=== PATIENT | female | born 1970 | race African-American/Black ===

== ENCOUNTER 2016-08-16 16:39 | Emergency (ER) | payer OTHER ==
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
[2016-08-16 20:15] VITALS: BP 141/96
== END 2016-08-16 20:12 | disposition home or self-care (01) ==
LOC: ER 16:39
DX: T14.8 Other injury of unspecified body region (principal); V49.40XA Driver injured in collision with unspecified motor vehicles in traffic accident, initial encounter; K04.7 Periapical abscess without sinus; F17.200 Nicotine dependence, unspecified, uncomplicated; R51 Headache
CPT/HCPCS: 99283

== ENCOUNTER 2016-10-08 12:07 | Emergency (ER) | payer BC, OTHER ==
--- NOTE | 2016-10-08 13:50 | ER Document Report ---
ED Medical Screen (RME) - General Chief Complaint: Numbness Stated Complaint: NUMBNESS LEFT SIDE Time Seen by Provider: 10/08/16 13:50 Mode of Arrival: Ambulatory Information source: Patient Notes: This is a 46-year-old female with no prior medical problems who presents to the emergency room for several weeks worth of right upper extremity numbness. She presents with concerns for stroke. TRAVEL OUTSIDE OF THE [place] IN LAST 30 DAYS: No - HPI Onset: Other - Several weeks Onset/Duration: Gradual Quality of pain: No pain Severity: None Pain Level: Denies Associated Symptoms: denies: Chest pain, Shortness of breath Exacerbated by: Denies Relieved by: Denies Similar symptoms previously: No Recently seen / treated by doctor: No - Related Data Allergies/Adverse Reactions: No Known Allergies Allergy (Unverified 08/16/16 17:52) Past Medical History - General Information source: Patient - Social History Cigarette use (# per day): No Chew tobacco use (# tins/day): No Frequency of alcohol use: None Drug Abuse: None Lives with: Family Family history: Reviewed & Not Pertinent - Medical History Medical History: Negative Renal/ Medical History: Denies: Hx Peritoneal Dialysis - Immunizations Hx Diphtheria, Pertussis, Tetanus Vaccination: Yes Review of Systems - Review of Systems Constitutional: No symptoms reported EENT: No symptoms reported Cardiovascular: No symptoms reported Respiratory: No symptoms reported Gastrointestinal: No symptoms reported Genitourinary: No symptoms reported Female Genitourinary: No symptoms reported Musculoskeletal: No symptoms reported Skin: No symptoms reported Hematologic/Lymphatic: No symptoms reported Neurological/Psychological: No symptoms reported Physical Exam - Vital signs Vitals: Temp Pulse Resp BP Pulse Ox 98.3 F 69 18 142/90 H 100 10/08/16 12:23 10/08/16 12:23 10/08/16 12:23 10/08/16 12:23 10/08/16 12:23 Notes: Physical exam: GENERAL: 46-year-old female, alert and oriented 3, no acute distress HEAD: Atraumatic, normocephalic. EYES: Pupils equal round and reactive to light, extraocular movements intact, sclera anicteric, conjunctiva are normal. ENT: TMs normal, nares patent, oropharynx clear without exudates. Moist mucous membranes. NECK: Normal range of motion, supple without lymphadenopathy or JVD. LUNGS: Breath sounds clear to auscultation bilaterally and equal. No wheezes rales or rhonchi. HEART: Regular rate and rhythm without murmurs, rubs or gallops. ABDOMEN: Soft, normoactive bowel sounds. No tenderness to palpation. No guarding, no rebound. No masses appreciated. EXTREMITIES: Normal range of motion, no pitting or edema. No clubbing or cyanosis. NEUROLOGICAL: Cranial nerves II through XII grossly intact. 5/5, sensory grossly intact, cerebellar good ,normal speech, normal gait. NIH = 0 PSYCH: Normal mood, normal affect. SKIN: Warm, Dry, normal turgor, no rashes or lesions noted. Course - Vital Signs Vital signs: Temp Pulse Resp BP Pulse Ox 98.7 F 56 L 18 133/86 H 100 10/08/16 16:10 10/08/16 16:10 10/08/16 12:23 10/08/16 16:10 10/08/16 16:10 - Laboratory Result Diagrams: 10/08/16 14:00 10/08/16 14:00 Laboratory results interpreted by me: 10/08/16 10/08/16 14:00 14:00 Hgb 11.9 L Hct 35.4 L RDW 14.3 H AST 52 H Creatine Kinase 508 H Total Protein 9.7 H - Diagnostic Test Radiology reviewed: Image reviewed, Reports reviewed - By the brain shows no acute evidence of stroke Doctor's Discharge - Discharge Clinical Impression: numbness Radiculopathy Qualifiers: Spinal region: cervical Qualified Code(s): M54.12 - Radiculopathy, cervical region Condition: Stable Disposition: HOME, SELF-CARE Instructions: Radiculopathy ([facility]) Additional Instructions: As Discussed, MRI does not show any evidence of strokes. As far as your labs: Your kidneys, electrolytes, anemia studies were normal. Your blood pressure was borderline high. I would like you to follow-up with primary care doctor: I left the number for Dr. Ochoa on the chart. No restrictions on activity Return to the emergency room for any weakness or worsening numbness or any concerns you are getting worse Forms: Return to Work Referrals: DARWIN OCHOA MD [ACTIVE STAFF] - Follow up as needed (Number of a good primary care doctor who is affiliated with the hospital.)
[2016-10-08 14:32] LABS: ABSOLUTE BASOPHILS # (AUTO) 0.1 10^3/uL (0.0-0.2); ABSOLUTE EOSINOPHILS # (AUTO) 0.1 10^3/uL (0.0-0.6); ABSOLUTE LYMPHOCYTES (AUTO) 1.8 10^3/uL (0.5-4.7); ABSOLUTE MONOCYTES (AUTO) 0.2 10^3/uL (0.1-1.4); ABSOLUTE NEUT (AUTO) 3.9 10^3/uL (1.7-8.2); BASOPHILS % (AUTO) 1.2 % (0-2); HEMATOCRIT 35.4 % (36.0-47.0); HEMOGLOBIN 11.9 g/dL (12.0-15.5); HGB HCT DIFFERENCE 0.3; LYMPHOCYTES % (AUTO) 29.5 % (13-45); MEAN CORPUSCULAR HEMOGLOBIN 29.3 pg (27.0-33.4); MEAN CORPUSCULAR HGB CONC 33.8 g/dL (32.0-36.0); MEAN CORPUSCULAR VOLUME 87 fl (80-97); MONOCYTES % (AUTO) 3.7 % (3-13); RED BLOOD COUNT 4.07 10^6/uL (3.72-5.28); RED CELL DISTRIBUTION WIDTH 14.3 % (11.5-14.0); SEGMENTED NEUTROPHILS % (AUTO) 64.6 % (42-78)
[2016-10-08 14:46] LABS: ALANINE AMINOTRANSFERASE 50 U/L (9-52); ALKALINE PHOSPHATASE 53 U/L (38-126); ANION GAP 11 (5-19); ASPARTATE AMINO TRANSFERASE 52 U/L (14-36); BILIRUBIN,DIRECT 0.3 mg/dL (0.0-0.4); BILIRUBIN,TOTAL 0.7 mg/dL (0.2-1.3); BLOOD UREA NITROGEN 10 mg/dL (7-20); CALCIUM 9.5 mg/dL (8.4-10.2); CARBON DIOXIDE 25 mmol/L (22-30); CHLORIDE 103 mmol/L (98-107); CREATINE KINASE 508 U/L (30-135); CREATININE RESULT 0.94 mg/dL (0.52-1.25); GLUCOSE 87 mg/dL (75-110); POTASSIUM 3.7 mmol/L (3.6-5.0); SODIUM 139.4 mmol/L (137-145); TOTAL PROTEIN 9.7 g/dL (6.3-8.2)
[2016-10-08 14:58] LABS: CREATINE KINASE MB 2.32 ng/mL (<4.55); TROPONIN I < 0.012 ng/mL
--- NOTE | 2016-10-08 15:31 | RADIOLOGY REPORT (SQ) ---
EXAM DESCRIPTION: MRI HEAD WITHOUT COMPLETED DATE/TIME: 10/08/2016 3:19 pm REASON FOR STUDY: RUE numbness COMPARISON: None. TECHNIQUE: Multiplanar imaging includes non-contrasted T1, T2, FLAIR, and diffusion with ADC map seq uences. Images stored on PACS. LIMITATIONS: None. FINDINGS: ANATOMY: No anomalies. Normal vascular flow voids. Pituitary fossa normal. CSF SPACES: Normal in size and contour. No hemorrhage. CEREBRUM: Sulci and gyri normal in size and contour. There are few scattered hyperintense FLAIR foci within the superficial white matter of the bilateral frontal lobes which are nonspecific. No eviden ce of hemorrhage, mass, or extraaxial fluid collection. POSTERIOR FOSSA: No signal alteration. No hemorrhage. No edema, masses or mass effect. Internal tien tory canals, cerebello-pontine angles, mastoids normal. DIFFUSION IMAGING: Negative for acute or sub-acute infarction. ORBITS: No masses. Globes normal. PARANASAL SINUSES: No fluid levels. Mucosa normal. OTHER: No other significant finding. IMPRESSION: NO ACUTE ISCHEMIA, HEMORRHAGE, OR MASS LESION. MINIMAL NONSPECIFIC WHITE MATTER CHANGE ABOVE CAN BE SEQUELA TO ANY PRIOR INFECTIOUS OR INFLAMMATO RY PROCESS INCLUDING EARLY CHRONIC MICROVASCULAR ISCHEMIC DISEASE. EVIDENCE OF ACUTE STROKE: NO. TECHNICAL DOCUMENTATION: JOB ID: [id number] [employer]- All Rights Reserved
[2016-10-08 16:12] VITALS: BP 133/86
--- NOTE | 2016-10-09 13:59 | EKG REPORT ---
SEVERITY:- ABNORMAL ECG - ACCELERATED JUNCTIONAL ESCAPE RHYTHM BORDERLINE LEFT AXIS DEVIATION BORDERLINE PROLONGED QT INTERVAL : Confirmed by: Roseanna Heath MD 09-Oct-2016 13:58:53
== END 2016-10-08 16:12 | disposition home or self-care (01) ==
LOC: ER 12:07
DX: R20.0 Anesthesia of skin (principal); M54.12 Radiculopathy, cervical region
CPT/HCPCS: 36415; 70551; 80053; 82550; 82553; 84484; 85025; 93005; 93010; 99284